=== PATIENT | female | born 1960 | race Caucasian/White ===

== ENCOUNTER 2022-11-13 14:05 | Inpatient (IN) | payer OTHER ==
[~2022-11-13] VITALS: Ht 182.9 cm; Wt 120.5 kg
[2022-11-13] VITALS (8 sets, daily range): BP systolic 77–111; BP diastolic 53–67; PULSE 67–75; RESP 16–21; TEMP 97.7; O2SAT 94–99
[2022-11-13 14:16] LABS: BASOPHILS # (AUTO) 0.1 X10'3 (0-0.2); BASOPHILS % (AUTO) 0.5 % (0-1); EOSINOPHILS # (AUTO) 0.1 X10'3 (0-0.9); EOSINOPHILS % (AUTO) 1.1 % (0-6); HEMATOCRIT 43.4 % (35.0-45.0); HEMOGLOBIN 14.4 g/dl (12.0-16.0); LYMPHOCYTES % (AUTO) 26.6 % (21-51); MEAN CORPUSCULAR HGB CONC 33.1 g/dL (33.0-36.5); MEAN CORPUSCULAR VOLUME 87.5 FL (78-98); MEAN PLATELET VOLUME 10.5 FL (7.4-10.4); MONOCYTES # (AUTO) 0.9 X10'3 (0-0.9); NEUTROPHILS # (AUTO) 7.3 X10'3 (1.8-7.7); NEUTROPHILS % (AUTO) 63.8 % (42-75); PLATELET COUNT 204 X10'3 (140-440); RED BLOOD COUNT 4.96 X10'6 (4.20-5.60); RED CELL DISTRIBUTION WIDTH 14.4 % (11.5-14.5); WHITE BLOOD COUNT 11.4 X10'3 (4.5-11.0)
[2022-11-13] MEDS ORDERED: diltiazem 5mg/ml 5ml inj. IV ONE ×2 (14:30→15:15)
[2022-11-13] MEDS ORDERED: LORazepam 2 mg/ml vial IV ONE ×2 (14:30→16:25)
[2022-11-13] MEDS ORDERED: normal saline 1000ML IV soln IVB ONE (14:30)
[2022-11-13 14:37] LABS: ALANINE AMINOTRANSFERASE 28 U/L (12-78); ALBUMIN/GLOBULIN RATIO 1.1 (1.1-1.5); ALKALINE PHOSPHATASE 116 IU/L (46-116); ANION GAP 15 (8-16); ASPARTATE AMINO TRANSFERASE 23 U/L (10-37); BILIRUBIN,TOTAL 0.4 MG/DL (0.1-1.0); BLOOD UREA NITROGEN 8 MG/DL (7-18); BUN/CREATININE RATIO 8.6 (10.0-20.0); CALCIUM 9.3 MG/DL (8.5-10.1); CHLORIDE 98 MMOL/L (99-107); CREATININE 0.93 MG/DL (0.40-0.90); GLUCOSE 190 MG/DL (70-104); SODIUM 137 MMOL/L (135-145); TOTAL CARBON DIOXIDE 23.7 MMOL/L (24-32); TOTAL PROTEIN 7.7 G/DL (6.4-8.2); eGFR 61 ML/MIN
[2022-11-13 14:38] LABS: POTASSIUM 2.8 MMOL/L (3.5-5.1)
--- NOTE | 2022-11-13 14:47 | NUR ---
critical lab value. K+ 2.8, Dr. Briggs notified.
[2022-11-13] MEDS ORDERED: potassium Cl 40MEQ/1/2NS 520ml 520 ML IV SCH (16:00)
[2022-11-13] MEDS ORDERED: diltiazem-NS 100mg/100ml 100 ML IV PRN (16:15)
[2022-11-13] MEDS ORDERED: magnesium 2GM in 50ml NS 50 ML IV PRN (16:35)
[2022-11-13] MEDS ORDERED: potassium Cl 20 mEq SR tablet PO PRN (16:35)
[2022-11-13] MEDS ORDERED: ondansetron/PF 4mg/2ml inj IV PRN (16:35)
[2022-11-13] MEDS ORDERED: magnesium Cl slow-release 64mg tablet PO PRN (16:35)
[2022-11-13] MEDS ORDERED: morphine 2 MG/ML inj. syringe IV PRN ×2 (16:35)
[2022-11-13] MEDS ORDERED: diltiazem-D5W 125mg/125ml 125 ML IV SCH (16:35)
[2022-11-13] MEDS ORDERED: magnesium hydroxide 30ml (MOM) UD suspension PO PRN (16:35)
[2022-11-13] MEDS ORDERED: ondansetron 4mg rapidly disintigrating tab PO PRN (16:35)
[2022-11-13] MEDS ORDERED: HYDROcodone/acetaminophen 5mg/325mg tablet PO PRN (16:35)
[2022-11-13] MEDS ORDERED: acetaminophen 325mg tablet PO PRN ×2 (16:35)
[2022-11-13] MEDS ORDERED: mag hydrox/Alum hydrox/simeth 30ml oral suspension PO PRN (16:35)
[2022-11-13] MEDS ORDERED: magnesium 4gm in 100ml NS 100 ML IV PRN (16:35)
[2022-11-13] MEDS ORDERED: potassium Cl 40MEQ/1/2NS 520ml 520 ML IV PRN (16:35)
[2022-11-13] MEDS ORDERED: HYDROcodone/acetaminophen 10/325mg tab PO PRN (16:35)
[2022-11-13 17:37] LABS: MAGNESIUM 1.7 MG/DL (1.5-2.4); PHOSPHORUS 3.6 MG/DL (2.3-4.5)
[2022-11-13] MEDS ORDERED: LISI1TAB49 PO (18:30)
[2022-11-13] MEDS ORDERED: HYDR-3686 PO (18:30)
[2022-11-13] MEDS ORDERED: GABA300C PO (18:30)
[2022-11-13] MEDS ORDERED: IBUP-1986 PO (18:31)
--- NOTE | 2022-11-13 19:00 | NUR ---
ED BED 15--HYPOTENSIVE AND TACHY IN 150S PAUSED DILT DRIP DUE TO HYPOTENSION X5376
[2022-11-13] MEDS ORDERED: amiodarone 150mg/dext, iso-os 100 ML IV ONE (19:05)
--- NOTE | 2022-11-13 19:30 | NUR ---
ED BED 15-PT TOLERATING AMIODARONE WITH SOME IMPROVEMENT, DO YOU WANT MAINTENANCE DRIP? [id number]
[2022-11-13] MEDS ORDERED: amiodarone/D5 360MG/200ML BAG 200 ML IV SCH (19:35)
[2022-11-13] MEDS: K and/or MAG REPLACEMENT MC SCH (20:00)
[2022-11-13] MEDS: docusate sod 100mg capsule PO SCH (20:00)
[2022-11-13] MEDS ORDERED: enoxaparin 40mg/0.4ml syringe SUBCUT SCH (20:00)
[2022-11-13] MEDS ORDERED: normal saline 500ml IV soln 500 ML IV ONE (20:20)
[2022-11-13 20:56] LABS: URINE AMPHETAMINE SCREEN NEGATIVE (Neg); URINE BARBITUATE SCREEN NEGATIVE (Neg); URINE BENZODIAZEPINES SCREEN NEGATIVE (Neg); URINE CANNABINOID SCREEN NEGATIVE (Neg); URINE COCAINE SCREEN NEGATIVE (Neg); URINE METHADONE SCREEN NEGATIVE (Neg); URINE OPIATE SCREEN NEGATIVE (Neg); URINE PHENCYCLIDINE SCREEN NEGATIVE (Neg)
[2022-11-13] MEDS ORDERED: temazepam 15mg capsule PO PRN (21:00)
[2022-11-13] MEDS: potassium Cl 20 mEq SR tablet PO PRN (21:42)
[2022-11-13] MEDS ORDERED: Potassium Cl inj 20 MEQ in normal saline 1000ml 990 ML IV SCH (22:35)
[2022-11-13] MEDS: amiodarone/D5 360MG/200ML BAG 200 ML IV SCH (23:25)
[2022-11-13] MEDS: normal saline 1000ml 1,000 ML IV SCH (23:35)
[2022-11-14] VITALS: BP 97/66; PULSE 66; RESP 21
[2022-11-14 01:00] VITALS: BP 90/53; PULSE 76; RESP 21
[2022-11-14 02:00] VITALS: BP 115/69; PULSE 67; RESP 18; TEMP 97.7; O2SAT 97
[2022-11-14] MEDS: potassium Cl 20 mEq SR tablet PO PRN (02:20)
[2022-11-14] MEDS: amiodarone/D5 360MG/200ML BAG 200 ML IV SCH (03:29)
--- NOTE | 2022-11-14 06:22 | NUR ---
Patient in room U 3025. I have received report from Fawad and had the opportunity to ask questions and assume patient care. Addendum: 11/14/22 at 0622 by Christopher Wright RN Amended: Links added.
[2022-11-14 06:29] LABS: BASOPHILS % (AUTO) 0.6 % (0-1); EOSINOPHILS # (AUTO) 0.2 X10'3 (0-0.9); EOSINOPHILS % (AUTO) 2.7 % (0-6); HEMATOCRIT 38.1 % (35.0-45.0); HEMOGLOBIN 12.7 g/dl (12.0-16.0); LYMPHOCYTES # (AUTO) 2.3 X10'3 (1.1-4.8); LYMPHOCYTES % (AUTO) 28.5 % (21-51); MEAN CORPUSCULAR HEMOGLOBIN 28.9 PG (27.0-31.0); MEAN CORPUSCULAR HGB CONC 33.3 g/dL (33.0-36.5); MEAN CORPUSCULAR VOLUME 86.8 FL (78-98); MONOCYTES # (AUTO) 0.6 X10'3 (0-0.9); MONOCYTES % (AUTO) 8.2 % (2-12); NEUTROPHILS # (AUTO) 4.7 X10'3 (1.8-7.7); RED BLOOD COUNT 4.39 X10'6 (4.20-5.60); RED CELL DISTRIBUTION WIDTH 14.3 % (11.5-14.5); WHITE BLOOD COUNT 7.9 X10'3 (4.5-11.0)
[2022-11-14 06:48] LABS: ALANINE AMINOTRANSFERASE 22 U/L (12-78); ALBUMIN 3.1 G/DL (3.4-5.0); ALKALINE PHOSPHATASE 91 IU/L (46-116); ANION GAP 12 (8-16); ASPARTATE AMINO TRANSFERASE 13 U/L (10-37); BILIRUBIN,TOTAL 0.2 MG/DL (0.1-1.0); BLOOD UREA NITROGEN 12 MG/DL (7-18); BUN/CREATININE RATIO 12.8 (10.0-20.0); CALCIUM 8.5 MG/DL (8.5-10.1); CHLORIDE 103 MMOL/L (99-107); CREATININE 0.94 MG/DL (0.40-0.90); GLUCOSE 138 MG/DL (70-104); MAGNESIUM 1.8 MG/DL (1.5-2.4); POTASSIUM 3.5 MMOL/L (3.5-5.1); SODIUM 139 MMOL/L (135-145); TOTAL CARBON DIOXIDE 24.2 MMOL/L (24-32); TOTAL PROTEIN 6.2 G/DL (6.4-8.2); eGFR 61 ML/MIN
[2022-11-14 07:16] VITALS: BP 96/56; PULSE 74; RESP 24; TEMP 97.9; O2SAT 96
[2022-11-14] MEDS: K and/or MAG REPLACEMENT MC SCH (07:18)
[2022-11-14] MEDS: docusate sod 100mg capsule PO SCH (07:23)
[2022-11-14] MEDS: gabapentin 300mg capsule PO SCH ×2 (07:23→13:51)
[2022-11-14 08:00] VITALS: RESP 24; O2SAT 96
[2022-11-14] MEDS: normal saline 1000ml 1,000 ML IV SCH (10:41)
[2022-11-14] MEDS ORDERED: amiodarone 200mg tablet PO SCH (11:20)
[2022-11-14 11:38] VITALS: BP 156/75; PULSE 75; RESP 20; TEMP 97.1; O2SAT 98
--- NOTE | 2022-11-14 12:47 | NUR ---
Malnutrition Consult: Pt admit DX HTN, new onset afib w/ RVR, hypokalemia, and anxiety reports 2-13 pounds wt loss w/ decreased intake [employer] per EMR. Pt PO 50% first regular diet meal WB has normal strength, no edema/wounds, appears WD/WN per H&P, and is pending scaled wt this admit w/ no prior scaled wt hx in EMR. At this time pt lacks minimum two malnutrition criteria; will monitor for further malnutrition criteria this admit. Addendum: 11/14/22 at [address] Amended: Links added.
--- NOTE | 2022-11-14 15:51 | NUR ---
PAGER ID: [phone] MESSAGE: [id number], Young-She is saying she was told she was being discharged, asking to go
[2022-11-14] MEDS ORDERED: AMI200T PO (16:04)
[2022-11-14] MEDS ORDERED: SERT50TA PO (16:04)
[2022-11-14] MEDS ORDERED: ALPR-624 PO (16:04)
--- NOTE | 2022-11-14 16:48 | NUR ---
IVS/Tele off, DC paperwork reviewed, discussed need for PCP and f/u. Questions answered
== END 2022-11-14 16:51 | disposition home or self-care (01) | DRG 309 ==
LOC: ER 14:05 → ED HOLD 16:36 → EDBEDREQ 18:58 → PCU 3S 21:05
PROVIDERS: ADMIT Family Medicine; ATTEND Family Medicine
DX: I48.91 Unspecified atrial fibrillation (principal); N17.9 Acute kidney failure, unspecified; E87.6 Hypokalemia; I95.9 Hypotension, unspecified; I12.9 Hypertensive chronic kidney disease with stage 1 through stage 4 chronic kidney disease, or unspecified chronic kidney disease; N18.9 Chronic kidney disease, unspecified; R00.0 Tachycardia, unspecified; R07.2 Precordial pain; F17.210 Nicotine dependence, cigarettes, uncomplicated; F41.1 Generalized anxiety disorder; F43.20 Adjustment disorder, unspecified; Z88.1 Allergy status to other antibiotic agents; Z79.899 Other long term (current) drug therapy; Z71.6 Tobacco abuse counseling
CPT/HCPCS: 36415; 71045; 80053; 80305; 83735; 83880; 84100; 84443; 84484; 85025; 93005; 93306; 94760; 99285; G0378; J0282; J1650; J2060; J3480; J3490; J7030; J7040

== ENCOUNTER 2023-10-24 03:24 | Inpatient (IN) | payer OTHER ==
[2023-10-24] VITALS (13 sets, daily range): BP systolic 72–139; BP diastolic 55–90; PULSE 71–140; RESP 12–20; TEMP 97.1–98.3; O2SAT 92–99
[~2023-10-24] VITALS: Ht 180.3 cm; Wt 115.0 kg
[~2023-10-24 03:24] MED LIST: ALPR-624 PO; AMI200T PO; GABA300C PO; HYDR-3686 PO; IBUP-1986 PO; LISI1TAB49 PO
[2023-10-24] MEDS: aspirin 81mg tab.chew PO ONE (03:53)
[2023-10-24] MEDS: diltiazem 5mg/ml 5ml inj. IV ONE ×3 (03:57→06:48)
[2023-10-24] MEDS: normal saline 1000ml 1,000 ML IV ONE (04:00)
[2023-10-24 04:03] LABS: BASOPHILS # (AUTO) 0.1 X10'3 (0-0.2); BASOPHILS % (AUTO) 0.8 % (0-1); EOSINOPHILS # (AUTO) 0.2 X10'3 (0-0.9); EOSINOPHILS % (AUTO) 2.3 % (0-6); HEMATOCRIT 39.7 % (35.0-45.0); HEMOGLOBIN 13.4 g/dl (12.0-16.0); LYMPHOCYTES # (AUTO) 2.1 X10'3 (1.1-4.8); LYMPHOCYTES % (AUTO) 20.2 % (21-51); MEAN CORPUSCULAR HEMOGLOBIN 29.1 PG (27.0-31.0); MEAN CORPUSCULAR HGB CONC 33.8 g/dL (33.0-36.5); MEAN CORPUSCULAR VOLUME 86.3 FL (78-98); MEAN PLATELET VOLUME 10.3 FL (7.4-10.4); MONOCYTES # (AUTO) 0.8 X10'3 (0-0.9); MONOCYTES % (AUTO) 7.7 % (2-12); NEUTROPHILS # (AUTO) 7.1 X10'3 (1.8-7.7); PLATELET COUNT 176 X10'3 (140-440); RED CELL DISTRIBUTION WIDTH 13.8 % (11.5-14.5); WHITE BLOOD COUNT 10.3 X10'3 (4.5-11.0)
[2023-10-24] MEDS: diltiazem-NS 100mg/100ml 100 ML IV SCH (04:08)
[2023-10-24 04:20] LABS: APTT 28 SECONDS (22-32); PROTHROMBIN TIME 10.1 SECONDS (9.0-12.0)
[2023-10-24 04:26] LABS: ALBUMIN 3.4 G/DL (3.4-5.0); ANION GAP 12 (8-16); BLOOD UREA NITROGEN 21 MG/DL (7-18); BUN/CREATININE RATIO 24.1 (10.0-20.0); CALCIUM 8.7 MG/DL (8.5-10.1); CHLORIDE 105 MMOL/L (99-107); CREATININE 0.87 MG/DL (0.40-0.90); GLUCOSE 167 MG/DL (70-104); POTASSIUM 3.6 MMOL/L (3.5-5.1); PRO BRAIN NATRIURETIC PEPTIDE 3147 PG/ML (0-125); SODIUM 140 MMOL/L (135-145); TOTAL CARBON DIOXIDE 23.4 MMOL/L (24-32); eCRCL 75 ML/MIN; eGFR 66 ML/MIN
[2023-10-24] MEDS: enoxaparin 100mg/ml syringe SUBCUT ONE (04:40)
[2023-10-24] MEDS: potassium Cl 20 mEq SR tablet PO ONE (04:40)
[2023-10-24] MEDS: magnesium oxide 400mg tablet PO ONE ×2 (04:40→05:47)
[2023-10-24] MEDS: magnesium sulf-water 2g/50mL 50 ML IV ONE (04:55)
[2023-10-24] MEDS ORDERED: potassium Cl 40MEQ/1/2NS 520ml 520 ML IV PRN (05:00)
[2023-10-24] MEDS ORDERED: ondansetron/PF 4mg/2ml inj IV PRN (05:00)
[2023-10-24] MEDS ORDERED: magnesium Cl slow-release 64mg tablet PO PRN (05:00)
[2023-10-24] MEDS ORDERED: mag hydrox/Alum hydrox/simeth 30ml oral suspension PO PRN (05:00)
[2023-10-24] MEDS ORDERED: magnesium sulf-water 4G/100mL 100 ML IV PRN (05:00)
[2023-10-24] MEDS ORDERED: morphine 2 MG/ML inj. syringe IV PRN ×2 (05:00)
[2023-10-24] MEDS ORDERED: acetaminophen 325mg tablet PO PRN (05:00)
[2023-10-24] MEDS ORDERED: potassium Cl 20 mEq SR tablet PO PRN ×2 (05:00)
[2023-10-24] MEDS ORDERED: magnesium sulf-water 2g/50mL 50 ML IV PRN (05:00)
[2023-10-24] MEDS ORDERED: hydrOXYzine 25 MG tablet PO PRN (05:15)
[2023-10-24] MEDS: amiodarone 200mg tablet PO ONE (06:10)
[2023-10-24] MEDS: amiodarone 150mg/dext, iso-os 100 ML IV ONE (06:48)
[2023-10-24] MEDS: metoprolol tartrate 1mg/ml inj IV PRN (07:06)
[2023-10-24] MEDS ORDERED: amiodarone 200mg tablet PO SCH (08:00)
[2023-10-24] MEDS: K and/or MAG REPLACEMENT MC SCH (08:00)
[2023-10-24] MEDS: metoprolol tartrate 25mg tablet PO SCH ×2 (08:00→14:08)
[2023-10-24] MEDS ORDERED: enoxaparin 80mg/0.8ml syringe SUBCUT SCH (08:00)
[2023-10-24] MEDS ORDERED: enoxaparin 30mg/0.3ml syringe SUBCUT SCH ×2 (08:00)
[2023-10-24] MEDS: docusate sod 100mg capsule PO SCH (08:00)
[2023-10-24 08:11] LABS: BILIRUBIN,URINE NEGATIVE (Neg); CLARITY,URINE CLEAR (Clear); COLOR,URINE YELLOW (Yellow); GLUCOSE, URINE NEGATIVE (Neg); KETONES,URINE NEGATIVE (Neg); LEUKOCYTE ESTERASE ,URINE NEGATIVE (Neg); NITRITES, URINE NEGATIVE (Neg); OCCULT BLOOD,URINE NEGATIVE (Neg); PROTEIN,URINE NEGATIVE (Neg); UA COLLECTION TYPE CLN CATCH MIDSTREAM; UROBILINOGEN,URINE 0.2 E.U/dL (0.2-1.0)
[2023-10-24 08:12] LABS: THYROID STIMULATING HORMONE 0.64 ulU/ml (0.34-4.50)
[2023-10-24] MEDS ORDERED: LISI1TAB53 PO (09:02)
[2023-10-24] MEDS ORDERED: ALPR0.5T9 PO (09:02)
[2023-10-24] MEDS: gabapentin 300mg capsule PO SCH (09:37)
[2023-10-24] MEDS: HYDROchlorothiazide 12.5mg capsule PO SCH (09:37)
[2023-10-24] MEDS: lisinopril 10 MG tablet PO SCH (09:37)
[2023-10-24] MEDS ORDERED: ondansetron 4mg rapidly disintigrating tab PO PRN (12:55)
[2023-10-24] MEDS: metoprolol tartrate 1mg/ml inj IV ONE (16:30)
[2023-10-24] MEDS: ringers solution, lacted 1,000 ML IV ONE (16:45)
[2023-10-24] MEDS: LORazepam 1 MG tablet PO ONE (16:47)
[2023-10-24] MEDS ORDERED: enoxaparin 40mg/0.4ml syringe SQ SCH (20:00)
[2023-10-24] MEDS: enoxaparin 80mg/0.8ml syringe SUBCUT SCH (21:29)
[2023-10-24] MEDS: enoxaparin 30mg/0.3ml syringe SUBCUT SCH (21:30)
[2023-10-25] VITALS (8 sets, daily range): BP systolic 97–114; BP diastolic 52–89; PULSE 96–138; RESP 12–22; TEMP 98.1–98.9; O2SAT 96–100
[2023-10-25] MEDS: ALPRAZolam 0.5mg tablet PO PRN (01:49)
[2023-10-25 06:57] LABS: BASOPHILS # (AUTO) 0.1 X10'3 (0-0.2); BASOPHILS % (AUTO) 0.8 % (0-1); EOSINOPHILS # (AUTO) 0.2 X10'3 (0-0.9); EOSINOPHILS % (AUTO) 3.1 % (0-6); HEMATOCRIT 42.6 % (35.0-45.0); LYMPHOCYTES # (AUTO) 2.3 X10'3 (1.1-4.8); LYMPHOCYTES % (AUTO) 28.3 % (21-51); MEAN CORPUSCULAR HEMOGLOBIN 28.7 PG (27.0-31.0); MEAN CORPUSCULAR HGB CONC 32.8 g/dL (33.0-36.5); MEAN CORPUSCULAR VOLUME 87.5 FL (78-98); MEAN PLATELET VOLUME 11.1 FL (7.4-10.4); MONOCYTES # (AUTO) 0.7 X10'3 (0-0.9); MONOCYTES % (AUTO) 8.8 % (2-12); NEUTROPHILS # (AUTO) 4.8 X10'3 (1.8-7.7); PLATELET COUNT 160 X10'3 (140-440); RED BLOOD COUNT 4.87 X10'6 (4.20-5.60); RED CELL DISTRIBUTION WIDTH 13.7 % (11.5-14.5); WHITE BLOOD COUNT 8.1 X10'3 (4.5-11.0)
[2023-10-25 07:14] LABS: LARGE PLATELETS FEW; PLATELET ESTIMATE NORMAL
[2023-10-25 07:22] LABS: ALANINE AMINOTRANSFERASE 21 U/L (12-78); ALBUMIN 3.4 G/DL (3.4-5.0); ALBUMIN/GLOBULIN RATIO 0.9 (1.1-1.5); ALKALINE PHOSPHATASE 95 IU/L (46-116); ANION GAP 11 (8-16); ASPARTATE AMINO TRANSFERASE 13 U/L (10-37); BILIRUBIN,TOTAL 0.2 MG/DL (0.1-1.0); BLOOD UREA NITROGEN 13 MG/DL (7-18); BUN/CREATININE RATIO 17.3 (10.0-20.0); CALCIUM 8.6 MG/DL (8.5-10.1); CHLORIDE 104 MMOL/L (99-107); CHOL/HDL RATIO 4.1 (0.00-4.99); CHOLESTEROL 172 MG/DL (0-200); CREATININE 0.75 MG/DL (0.40-0.90); GLUCOSE 102 MG/DL (70-104); HDL CHOLESTEROL 42 MG/DL (35-60); LDL CHOLESTEROL 100 MG/DL (50-100); POTASSIUM 3.8 MMOL/L (3.5-5.1); SODIUM 136 MMOL/L (135-145); TOTAL CARBON DIOXIDE 21.2 MMOL/L (24-32); TOTAL PROTEIN 7.3 G/DL (6.4-8.2); TRIGLYCERIDES 200 MG/DL (20-135); eCRCL 87 ML/MIN; eGFR 78 ML/MIN
[2023-10-25] MEDS: metoprolol tartrate 25mg tablet PO ONE (11:59)
[2023-10-25] MEDS: metoprolol tartrate 1mg/ml inj IV ONE (12:00)
[2023-10-25] MEDS ORDERED: metoprolol tartrate 25mg tablet PO SCH (13:00)
[2023-10-25] MEDS: LORazepam 1 MG tablet PO PRN (13:37)
[2023-10-25] MEDS: metoprolol tartrate 25mg tablet PO SCH (14:27)
[2023-10-25] MEDS: ringers solution, lacted 1,000 ML IV ONE (17:51)
[2023-10-25] MEDS: digoxin 250mcg/ml 2ml ampule IV ONE (20:36)
[2023-10-25] MEDS: hydrOXYzine 25 MG tablet PO ONE (20:37)
[2023-10-26] MEDS: digoxin 250mcg/ml 2ml ampule IV ONE ×3 (01:00→13:04)
[2023-10-26 02:00] VITALS: BP 98/71; PULSE 133; RESP 18; TEMP 97.5; O2SAT 95
[2023-10-26 05:58] LABS: BASOPHILS % (AUTO) 0.5 % (0-1); EOSINOPHILS # (AUTO) 0.2 X10'3 (0-0.9); EOSINOPHILS % (AUTO) 2.4 % (0-6); HEMATOCRIT 37.6 % (35.0-45.0); HEMOGLOBIN 12.4 g/dl (12.0-16.0); LYMPHOCYTES # (AUTO) 2.5 X10'3 (1.1-4.8); LYMPHOCYTES % (AUTO) 27.4 % (21-51); MEAN CORPUSCULAR HEMOGLOBIN 29.1 PG (27.0-31.0); MEAN CORPUSCULAR VOLUME 88.2 FL (78-98); MEAN PLATELET VOLUME 10.3 FL (7.4-10.4); MONOCYTES # (AUTO) 0.6 X10'3 (0-0.9); NEUTROPHILS # (AUTO) 5.6 X10'3 (1.8-7.7); NEUTROPHILS % (AUTO) 62.7 % (42-75); PLATELET COUNT 156 X10'3 (140-440); RED BLOOD COUNT 4.26 X10'6 (4.20-5.60); RED CELL DISTRIBUTION WIDTH 13.6 % (11.5-14.5)
[2023-10-26 06:00] VITALS: BP 135/96; PULSE 77; RESP 18; TEMP 97.9; O2SAT 97
[2023-10-26 06:15] LABS: ANION GAP 8 (8-16); BLOOD UREA NITROGEN 15 MG/DL (7-18); BUN/CREATININE RATIO 19.7 (10.0-20.0); CHLORIDE 106 MMOL/L (99-107); CREATININE 0.76 MG/DL (0.40-0.90); GLUCOSE 155 MG/DL (70-104); POTASSIUM 3.9 MMOL/L (3.5-5.1); SODIUM 140 MMOL/L (135-145); TOTAL CARBON DIOXIDE 26.1 MMOL/L (24-32)
[2023-10-26 06:16] LABS: ALANINE AMINOTRANSFERASE 24 U/L (12-78); ALBUMIN/GLOBULIN RATIO 0.9 (1.1-1.5); ALKALINE PHOSPHATASE 90 IU/L (46-116); ASPARTATE AMINO TRANSFERASE 13 U/L (10-37); BILIRUBIN,TOTAL 0.2 MG/DL (0.1-1.0); CALCIUM 8.5 MG/DL (8.5-10.1); TOTAL PROTEIN 6.4 G/DL (6.4-8.2); eCRCL 86 ML/MIN; eGFR 77 ML/MIN
[2023-10-26 08:00] VITALS: RESP 18; O2SAT 97
[2023-10-26] MEDS: nicotine 14mg patch - 24hr TD SCH (08:00)
[2023-10-26 11:00] VITALS: BP 143/101; PULSE 138; RESP 27; TEMP 97.5; O2SAT 97
[2023-10-26] MEDS: LORazepam 2 mg/ml vial IV ONE (13:04)
[2023-10-26 15:00] VITALS: BP 114/53; PULSE 57; RESP 15; TEMP 97.9; O2SAT 97
[2023-10-26] MEDS ORDERED: METO50TA17 PO (16:01)
[2023-10-26] MEDS ORDERED: APIX5TAB3 PO (16:01)
[2023-10-26] MEDS ORDERED: LORA-269 PO (16:01)
[2023-10-26] MEDS ORDERED: DIGO250T PO (17:31)
== END 2023-10-26 18:00 | disposition home or self-care (01) | DRG 282 ==
LOC: ER 03:25 → ED HOLD 05:11 → PCU 3S 08:15
PROVIDERS: ADMIT Internal Medicine Sleep Medicine; ATTEND Family Medicine
DX: I48.92 Unspecified atrial flutter (principal); I21.A1 Myocardial infarction type 2; I10 Essential (primary) hypertension; E86.0 Dehydration; I95.9 Hypotension, unspecified; R73.9 Hyperglycemia, unspecified; I48.20 Chronic atrial fibrillation, unspecified; F41.9 Anxiety disorder, unspecified; E66.9 Obesity, unspecified; Z87.891 Personal history of nicotine dependence; Z88.1 Allergy status to other antibiotic agents; Z88.8 Allergy status to other drugs, medicaments and biological substances; Z68.32 Body mass index [BMI] 32.0-32.9, adult
CPT/HCPCS: 36415; 71045; 80048; 80053; 80061; 80162; 81003; 83036; 83735; 83880; 84443; 84484; 85008; 85025; 85610; 85730; 87081; 93005; 93306; 96365; 96375; 99291; G0378; J1160; J1650; J2060; J3490; J7030; J7120; Q0177

== ENCOUNTER 2023-11-02 13:41 | Emergency (ER) | payer OTHER ==
[~2023-11-02] VITALS: Ht 175.3 cm; Wt 122.7 kg
[~2023-11-02 13:41] MED LIST changes: -ALPR-624 PO; +ALPR0.5T9 PO; -AMI200T PO; +APIX5TAB3 PO; +DIGO250T PO; +LISI1TAB53 PO; +LORA-269 PO; +METO50TA17 PO
[2023-11-02 13:45] VITALS: TEMP 98.4
[2023-11-02 14:18] LABS: BASOPHILS # (AUTO) 0.1 X10'3 (0-0.2); BASOPHILS % (AUTO) 0.7 % (0-1); EOSINOPHILS # (AUTO) 0.3 X10'3 (0-0.9); HEMATOCRIT 43.5 % (35.0-45.0); HEMOGLOBIN 14.6 g/dl (12.0-16.0); LYMPHOCYTES # (AUTO) 1.7 X10'3 (1.1-4.8); LYMPHOCYTES % (AUTO) 17.2 % (21-51); MEAN CORPUSCULAR HEMOGLOBIN 29.4 PG (27.0-31.0); MEAN CORPUSCULAR HGB CONC 33.5 g/dL (33.0-36.5); MEAN CORPUSCULAR VOLUME 87.7 FL (78-98); MEAN PLATELET VOLUME 10.3 FL (7.4-10.4); MONOCYTES # (AUTO) 0.7 X10'3 (0-0.9); MONOCYTES % (AUTO) 6.8 % (2-12); NEUTROPHILS # (AUTO) 7.2 X10'3 (1.8-7.7); NEUTROPHILS % (AUTO) 72.3 % (42-75); PLATELET COUNT 217 X10'3 (140-440); RED BLOOD COUNT 4.96 X10'6 (4.20-5.60); RED CELL DISTRIBUTION WIDTH 13.7 % (11.5-14.5)
[2023-11-02 14:30] LABS: ALANINE AMINOTRANSFERASE 55 U/L (12-78); ALBUMIN 3.5 G/DL (3.4-5.0); ALBUMIN/GLOBULIN RATIO 0.9 (1.1-1.5); ALKALINE PHOSPHATASE 125 IU/L (46-116); ANION GAP 12 (8-16); ASPARTATE AMINO TRANSFERASE 13 U/L (10-37); BILIRUBIN,TOTAL 0.3 MG/DL (0.1-1.0); BLOOD UREA NITROGEN 17 MG/DL (7-18); BUN/CREATININE RATIO 17.3 (10.0-20.0); CALCIUM 8.9 MG/DL (8.5-10.1); CHLORIDE 101 MMOL/L (99-107); CREATININE 0.98 MG/DL (0.40-0.90); GLUCOSE 256 MG/DL (70-104); POTASSIUM 3.4 MMOL/L (3.5-5.1); SODIUM 138 MMOL/L (135-145); TOTAL CARBON DIOXIDE 24.7 MMOL/L (24-32); TOTAL PROTEIN 7.5 G/DL (6.4-8.2); eCRCL 62 ML/MIN; eGFR 58 ML/MIN
[2023-11-02 14:40] LABS: PRO BRAIN NATRIURETIC PEPTIDE 407 PG/ML (0-125)
[2023-11-02] MEDS: metoprolol tartrate 1mg/ml inj IV SCH (14:54)
[2023-11-02] MEDS: etomidate 2mg/ml inj. IV ONE (15:53)
[2023-11-02 17:42] VITALS: BP 117/80; PULSE 51; RESP 16; O2SAT 97
== END 2023-11-02 18:31 | disposition home or self-care (01) ==
LOC: ER 13:42
DX: I48.20 Chronic atrial fibrillation, unspecified (principal); R00.2 Palpitations; I10 Essential (primary) hypertension; F41.9 Anxiety disorder, unspecified; Z88.1 Allergy status to other antibiotic agents; Z79.899 Other long term (current) drug therapy
CPT/HCPCS: 36415; 80053; 83880; 84484; 85025; 92960; 93005; 96374; 99152; 99285; J3490; 94760; A4620